=== PATIENT | male | born 1975 | race Caucasian/White ===

== ENCOUNTER 2016-09-23 15:31 | Emergency (ER) | payer BC ==
[2016-09-23] MEDS ORDERED: Labetalol 5 mg/mL 20 mL Vial ONE (15:52)
[2016-09-23] MEDS ORDERED: Labetalol 5 mg/mL 20 mL Vial IVP STA (15:53)
[2016-09-23] MEDS ORDERED: Sodium Chloride 0.9% 1,000 ML IV ONE ×2 (15:54→18:06)
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
[2016-09-23 16:15] VITALS: BP 210/107
[2016-09-23] MEDS ORDERED: Morphine Sulfate 4 mg/mL 1mL Syr IVP ONE ×2 (16:15→18:14)
[2016-09-23 16:33] LABS: HEMATOCRIT 37.7 % (39.0-49.0); HEMOGLOBIN 13.1 gm/dL (13.2-17.3); MEAN CELL VOLUME 85.3 fl (80-99); MEAN CORPUSCULAR HEMOGLOBIN 29.7 pg (26.0-30.0); MEAN CORPUSCULAR HGB CONC 34.8 pg (28.0-36.0); MEAN PLATELET VOLUME 8.2 fl; NEUTROPHILE ABSOLUTE 17.3 Th/cmm (1.8-8.0); PLATELET COUNT 296 Th/cmm (150-400); RED BLOOD COUNT 4.42 Mil/cmm (4.30-5.70); RED CELL DISTRIBUTION WIDTH 12.6 % (11.5-20.0)
[2016-09-23 16:37] LABS: WHITE BLOOD COUNT 19.1 Th/cmm (4.8-10.8)
[2016-09-23 16:51] LABS: ANION GAP 11.1 (7.0-16.0); BAND NEUTROPHILE 1 % (0-10); BUN - UREA NITROGEN 15 mg/dL (7-25); BUN/CREATININE RATIO 12.5; CALCIUM SERUM 9.3 mg/dL (8.6-10.3); CARBON DIOXIDE 24.3 mEq/L (21.0-31.0); CHLORIDE 103 mEq/L (98-107); CREATININE - SERUM 1.2 mg/dL (0.7-1.3); GLUCOSE 164 mg/dL (70-105); NEUTROPHILS 86 % (40-80); PLATELET ESTIMATE ADEQUATE (NORMAL); POTASSIUM SERUM 3.4 mEq/L (3.5-5.1); SODIUM SERUM 135 mEq/L (136-145); TOTAL CELLS COUNTED 100
[2016-09-23] MEDS ORDERED: IOHEXOL 350mg/mL 100mL Bottle IVP ONE (19:04)
--- NOTE | 2016-09-24 09:25 | Diagnostic Imaging Report ---
Exam: CT examination of the right lower extremity. HISTORY: Vascular injury Findings Total DLP equals 133 CTDI equals 3.0 Findings: Multiple contiguous thin section of the right lower extremity was obtained from a distal right femur to the level of the knee joint. The study demonstrates no evidence of fracture dislocation. Suboptimal opacification of the soft tissues appreciated. There is no evidence of vascular abnormality or disruption. There is no evidence for hematoma. Mild subcutaneous soft tissue swelling medially most likely related to cellulitis. IMPRESSION: Suboptimal contrast opacification. No definite vascular disruption or abnormality. Subcutaneous soft tissue swelling.
--- NOTE | 2016-09-24 09:34 | Diagnostic Imaging Report ---
Exam: Left wrist joint. HISTORY: Acute injury. Findings: Multiple views of the left wrist joint reviewed. The study demonstrates comminuted displaced impacted fracture of the distal left radius. Avulsion of ulnar styloid is noted.. Narrowing of the radiocarpal joint appreciated. The carpal bones are intact. There is evidence for a ventral dislocation of radiocarpal joint. IMPRESSION: 1. Severely comminuted displaced fracture of the left distal radius with impaction. The fracture extends into the radiocarpal joint space 2. Avulsion ulnar styloid. 3. Ventral dislocation of the left wrist joint.
--- NOTE | 2016-09-24 09:35 | Diagnostic Imaging Report ---
Exam: Right knee joint. HISTORY: Trauma Findings: Multiple views of the right knee joint reviewed. The study demonstrates no evidence of fracture dislocation. The joint spaces preserved. Lateral soft tissue swelling appreciated. IMPRESSION: soft tissue swelling, unremarkable examination right knee joint.
--- NOTE | 2016-09-24 09:36 | Diagnostic Imaging Report ---
Exam: Right fifth finger. HISTORY: Trauma. Findings: Multiple views of right technique fifth finger were reviewed. The study demonstrates a a tiny 2 mm avulsion fracture of the proximal end of the middle phalanx of the right fifth finger extending of the joint space. Soft tissue swelling is noted. IMPRESSION: 2 mm avulsion fracture at the base of the middle phalanx right fifth finger.
== END 2016-09-23 20:50 | disposition home or self-care (01) ==
LOC: ER 15:31
DX: S62.102A Fracture of unspecified carpal bone, left wrist, initial encounter for closed fracture (principal); I10 Essential (primary) hypertension; V29.9XXA Motorcycle rider (driver) (passenger) injured in unspecified traffic accident, initial encounter; Y93.89 Activity, other specified; Y92.488 Other paved roadways as the place of occurrence of the external cause; Y99.8 Other external cause status
CPT/HCPCS: 99285; 96374; 96375; 96376; 29125; 73110; 73564; 73140; 73701; 36415; 83605; 85007; 85027; 80048; Q9967; J2405; 73562-TC-RT; 90799; J2270; J7030

== ENCOUNTER 2016-10-11 14:27 | Inpatient (IN) | payer BC ==
[2016-10-11] MEDS ORDERED: IOHEXOL 300MG/ML 100 ML VIAL IVP ONE (14:28)
[2016-10-11] MEDS ORDERED: Sodium Chloride 0.9% 1,000 ML IV ONE (14:53)
[2016-10-11] MEDS ORDERED: cefTRIAXone 1 GM in Sodium Chloride 0.9% 50 ML IV ONE (14:55)
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
[2016-10-11 15:24] LABS: % BASOPHILS 0.7 % (0.0-2.0); % EOSINOPHILS 0.3 % (0.0-5.0); % MONOCYTES 10.3 % (2.0-10.0); % NEUTROPHILS 75.7 % (40.0-80.0); HEMATOCRIT 35.3 % (39.0-49.0); MEAN CELL VOLUME 88.6 fl (80-99); MEAN CORPUSCULAR HEMOGLOBIN 30.2 pg (26.0-30.0); MEAN CORPUSCULAR HGB CONC 34.1 pg (28.0-36.0); MEAN PLATELET VOLUME 7.8 fl; NEUTROPHILE ABSOLUTE 8.2 Th/cmm (1.8-8.0); PLATELET COUNT 332 Th/cmm (150-400); RED BLOOD COUNT 3.99 Mil/cmm (4.30-5.70); RED CELL DISTRIBUTION WIDTH 13.6 % (11.5-20.0)
[2016-10-11 15:36] LABS: WHITE BLOOD COUNT 10.8 Th/cmm (4.8-10.8)
[2016-10-11 15:37] LABS: INR 1.12 (0.5-1.4); PROTHROMBIN TIME (TEST) 11.7 SECONDS (9.5-11.5)
[2016-10-11 15:42] LABS: ALB/GLOB RATIO 1.3 (1.0-1.8); ALKALINE PHOSPHATASE 57 U/L (34-104); ANION GAP 10.5 (7.0-16.0); BILIRUBIN,TOTAL 0.8 mg/dL (0.3-1.0); BUN - UREA NITROGEN 22 mg/dL (7-25); CALCIUM SERUM 9.6 mg/dL (8.6-10.3); CARBON DIOXIDE 23.6 mEq/L (21.0-31.0); CHLORIDE 97 mEq/L (98-107); CREATININE - SERUM 1.1 mg/dL (0.7-1.3); GLUCOSE 107 mg/dL (70-105); POTASSIUM SERUM 3.1 mEq/L (3.5-5.1); SGOT 32 U/L (13-39); SGPT/ALT 29 U/L (7-52); SODIUM SERUM 128 mEq/L (136-145)
--- NOTE | 2016-10-11 16:29 | Diagnostic Imaging Report ---
CT scan right knee HISTORY: Pain, trauma The exam demonstrates generalized heterogeneous density throughout the soft tissues of the right knee consistent with edema/swelling. There is a loculated curvilinear density within the subcutaneous tissues along the posterior medial aspect of the knee. In view of the patient's traumatic history, findings may be associated with hematoma. No acute bony abnormalities. No fractures. Several punctate sclerotic densities are noted within the medial lateral femoral condyles and lateral tibial plateau regions. Findings consistent with incidental benign lesions. IMPRESSION: 1. Loculated density probably related to a fluid collection within the subcutaneous tissues along the medial aspect of the knee. In view of the patient's traumatic history, findings are probably associated with hematoma. An MRI exam would provide additional characterization and assessment. In addition, generalized haziness is noted throughout the soft tissues of the knee consistent with probable edema. 2. No acute bony abnormalities 3. Several punctate sclerotic densities within the medial and lateral femoral condyles and lateral tibial plateau regions consistent with incidental benign lesions.
--- NOTE | 2016-10-11 16:34 | Diagnostic Imaging Report ---
Portable chest x-ray HISTORY: Pain The heart size appears generous. No acute focal pulmonary processes. No hilar or mediastinal abnormalities. IMPRESSION: No acute abnormalities
[2016-10-11] MEDS ORDERED: Potassium Chloride 20 mEq ER Tab PO ONE ×2 (16:54→17:01)
[2016-10-11 19:46] VITALS: BP 167/104
[2016-10-11] MEDS ORDERED: Acetaminophen 500 MG TAB PO PRN (20:53)
[2016-10-11 21:10] LABS: URINE BILIRUBIN NEGATIVE (NEGATIVE); URINE BLOOD SMALL (NEGATIVE); URINE GLUCOSE (UA) NEGATIVE (NEGATIVE); URINE KETONE NEGATIVE (NEGATIVE); URINE PH 6.5 (4.6 - 8.0); URINE PROTEIN 30 mg/dL (NEGATIVE)
[2016-10-11] MEDS ORDERED: Vancomycin HCl 1.5 GM in Sodium Chloride 0.9% 500 ML IV ONE (21:15)
[2016-10-11 21:21] LABS: URINE COLOR YELLOW
[2016-10-11 21:24] LABS: URINE BACTERIA NONE SEEN /hpf (NONE SEEN); URINE EPITHELIAL CELLS NONE SEEN /lpf (FEW); URINE RBC 0-2 /hpf (0-5); URINE WBC 0-2 /hpf (0-5)
[2016-10-12 06:54] LABS: % BASOPHILS 0.1 % (0.0-2.0); % EOSINOPHILS 0.6 % (0.0-5.0); % LYMPHOCYTES 16.5 % (20.0-50.0); % MONOCYTES 10.1 % (2.0-10.0); % NEUTROPHILS 72.7 % (40.0-80.0); HEMATOCRIT 32.4 % (39.0-49.0); HEMOGLOBIN 10.8 gm/dL (13.2-17.3); MEAN CELL VOLUME 89.4 fl (80-99); MEAN CORPUSCULAR HEMOGLOBIN 29.8 pg (26.0-30.0); MEAN CORPUSCULAR HGB CONC 33.3 pg (28.0-36.0); MEAN PLATELET VOLUME 7.7 fl; NEUTROPHILE ABSOLUTE 5.7 Th/cmm (1.8-8.0); PLATELET COUNT 299 Th/cmm (150-400); RED BLOOD COUNT 3.62 Mil/cmm (4.30-5.70); RED CELL DISTRIBUTION WIDTH 13.9 % (11.5-20.0)
[2016-10-12 06:59] LABS: WHITE BLOOD COUNT 7.8 Th/cmm (4.8-10.8)
[2016-10-12 07:10] LABS: ANION GAP 8.5 (7.0-16.0); BUN - UREA NITROGEN 17 mg/dL (7-25); BUN/CREATININE RATIO 18.9; CARBON DIOXIDE 24.8 mEq/L (21.0-31.0); CHLORIDE 102 mEq/L (98-107); CREATININE - SERUM 0.9 mg/dL (0.7-1.3); GLUCOSE 105 mg/dL (70-105); POTASSIUM SERUM 3.3 mEq/L (3.5-5.1); SODIUM SERUM 132 mEq/L (136-145)
[2016-10-12] MEDS ORDERED: Vancomycin HCl 1.5 GM in Sodium Chloride 0.9% 500 ML IV ONE (08:45)
[2016-10-12] MEDS ORDERED: cefTRIAXone 1 GM in Sodium Chloride 0.9% 50 ML IV SCH (21:00)
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
[2016-10-13] MEDS: Hydrocodone/APAP 5mg/325mg Tab PO PRN (08:34)
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
[2016-10-13] MEDS ORDERED: Vancomycin HCl 1.5 GM in Sodium Chloride 0.9% 500 ML IV SCH (10:00)
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
[2016-10-13] MEDS ORDERED: Probiotic Screen MC PRN (17:24)
[2016-10-13] MEDS: Lactobacillus Rhamnosus 10 Billion CFU Capsule PO SCH (17:44)
[2016-10-13] MEDS ORDERED: Ampicillin 2 GM in Sodium Chloride 0.9% 100 ML IV SCH (18:20)
[2016-10-13] MEDS ORDERED: Potassium Chloride 20 mEq ER Tab PO ONE (18:27)
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
[2016-10-13] MEDS: cefTRIAXone 2 GM in Sodium Chloride 0.9% 100 ML IV SCH (21:08)
[2016-10-14 05:24] LABS: % BASOPHILS 0.5 % (0.0-2.0); % EOSINOPHILS 2.2 % (0.0-5.0); % LYMPHOCYTES 20.9 % (20.0-50.0); % MONOCYTES 8.3 % (2.0-10.0); % NEUTROPHILS 68.1 % (40.0-80.0); HEMATOCRIT 32.8 % (39.0-49.0); HEMOGLOBIN 11.4 gm/dL (13.2-17.3); MEAN CELL VOLUME 86.5 fl (80-99); MEAN CORPUSCULAR HEMOGLOBIN 29.9 pg (26.0-30.0); MEAN CORPUSCULAR HGB CONC 34.6 pg (28.0-36.0); MEAN PLATELET VOLUME 7.4 fl; NEUTROPHILE ABSOLUTE 6.3 Th/cmm (1.8-8.0); RED BLOOD COUNT 3.79 Mil/cmm (4.30-5.70); RED CELL DISTRIBUTION WIDTH 13.9 % (11.5-20.0); WHITE BLOOD COUNT 9.2 Th/cmm (4.8-10.8)
[2016-10-14 05:33] LABS: PLATELET COUNT 366 Th/cmm (150-400)
[2016-10-14 05:35] LABS: BUN - UREA NITROGEN 11 mg/dL (7-25); BUN/CREATININE RATIO 12.2; CALCIUM SERUM 9.1 mg/dL (8.6-10.3); CARBON DIOXIDE 30.5 mEq/L (21.0-31.0); CHLORIDE 100 mEq/L (98-107); CREATININE - SERUM 0.9 mg/dL (0.7-1.3); GLUCOSE 98 mg/dL (70-105); POTASSIUM SERUM 3.5 mEq/L (3.5-5.1); SODIUM SERUM 133 mEq/L (136-145)
[2016-10-14] MEDS: Lactobacillus Rhamnosus 10 Billion CFU Capsule PO SCH (08:21)
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
[2016-10-14] MEDS: cefTRIAXone 2 GM in Sodium Chloride 0.9% 100 ML IV SCH (17:39)
[2016-10-15] MEDS: Hydrocodone/APAP 5mg/325mg Tab PO PRN ×2 (00:03→21:27)
[2016-10-15] MEDS: Lactobacillus Rhamnosus 10 Billion CFU Capsule PO SCH (08:34)
[2016-10-15] MEDS: cefTRIAXone 2 GM in Sodium Chloride 0.9% 100 ML IV SCH (17:32)
[2016-10-16] MEDS: Lactobacillus Rhamnosus 10 Billion CFU Capsule PO SCH (09:24)
[2016-10-16] MEDS: cefTRIAXone 2 GM in Sodium Chloride 0.9% 100 ML IV SCH (18:19)
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
== END 2016-10-16 20:26 | DRG 549 ==
LOC: ER 14:27 → MSI 17:10
PROVIDERS: ADMIT Family Medicine; ATTEND Family Medicine
DX: M00.9 Pyogenic arthritis, unspecified (principal); S52.92XA Unspecified fracture of left forearm, initial encounter for closed fracture; E87.1 Hypo-osmolality and hyponatremia; I10 Essential (primary) hypertension; L03.115 Cellulitis of right lower limb; E66.9 Obesity, unspecified; E87.6 Hypokalemia; E86.0 Dehydration; S70.11XA Contusion of right thigh, initial encounter; V29.9XXA Motorcycle rider (driver) (passenger) injured in unspecified traffic accident, initial encounter; Y93.89 Activity, other specified; Y92.89 Other specified places as the place of occurrence of the external cause; Y99.8 Other external cause status; Z82.49 Family history of ischemic heart disease and other diseases of the circulatory system; Z91.19 Patient's noncompliance with other medical treatment and regimen; Z68.37 Body mass index [BMI] 37.0-37.9, adult
CPT/HCPCS: 36415-UA; 71010-TC; 73701-TC-RT; 73718-TC-RT; 80048-TC; 80053-TC; 80202-TC; 81001-TC; 82550-TC; 83605; 84484-TC; 85025-TC; 85610-TC; 85730-TC; 87070-90; 93005; J0696; J3370; J7030; J7040; Q9967; Z7610

== ENCOUNTER 2016-10-26 20:40 | Inpatient (IN) | payer BC ==
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
[2016-10-26 21:57] LABS: % BASOPHILS 1.1 % (0.0-2.0); % EOSINOPHILS 1.6 % (0.0-5.0); % LYMPHOCYTES 19.5 % (20.0-50.0); % MONOCYTES 5.9 % (2.0-10.0); % NEUTROPHILS 71.9 % (40.0-80.0); HEMATOCRIT 39.1 % (39.0-49.0); MEAN CELL VOLUME 88.6 fl (80-99); MEAN CORPUSCULAR HEMOGLOBIN 29.6 pg (26.0-30.0); MEAN CORPUSCULAR HGB CONC 33.3 pg (28.0-36.0); MEAN PLATELET VOLUME 7.8 fl; NEUTROPHILE ABSOLUTE 5.9 Th/cmm (1.8-8.0); PLATELET COUNT 353 Th/cmm (150-400); RED BLOOD COUNT 4.41 Mil/cmm (4.30-5.70); RED CELL DISTRIBUTION WIDTH 14.3 % (11.5-20.0); WHITE BLOOD COUNT 8.2 Th/cmm (4.8-10.8)
[2016-10-26 22:16] LABS: ANION GAP 7.3 (7.0-16.0); BUN - UREA NITROGEN 18 mg/dL (7-25); BUN/CREATININE RATIO 16.4; CALCIUM SERUM 9.8 mg/dL (8.6-10.3); CARBON DIOXIDE 28.3 mEq/L (21.0-31.0); CHLORIDE 98 mEq/L (98-107); CREATININE - SERUM 1.1 mg/dL (0.7-1.3); GLUCOSE 110 mg/dL (70-105); POTASSIUM SERUM 3.6 mEq/L (3.5-5.1); SODIUM SERUM 130 mEq/L (136-145)
[2016-10-27] MEDS ORDERED: Sodium Chloride 0.9% 1,000 ML IV ONE (01:24)
[2016-10-27] MEDS ORDERED: Hydrocodone/APAP 5mg/325mg Tab PO PRN (03:54)
[2016-10-27] MEDS ORDERED: Acetaminophen 500 MG TAB PO PRN (04:34)
[2016-10-27] MEDS ORDERED: cefTRIAXone 2 GM in Sodium Chloride 0.9% 100 ML IV ONE (10:13)
--- NOTE | 2016-10-27 13:53 | Diagnostic Imaging Report ---
Right lower extremity DVT study HISTORY: Pain COMPARISON: None Technique: Longitudinal and transverse sonographic images of the right lower extremity veins were obtained with doppler analysis. FINDINGS: There is normal compressibility, augmentation and phasicity of the right common femoral, superficial femoral, popliteal, and posterior tibial veins. No thrombus is visualized. IMPRESSION: No evidence of thrombus within the right lower extremity veins.
--- NOTE | 2016-10-27 14:50 | Diagnostic Imaging Report ---
MRI right knee without IV contrast History: Cellulitis Comparison: Right knee MRI performed at [facility] on 10/12/2016. Study was also compared to CT right lower extremity performed at [facility] on 10/11/2016. Technique: Multiplanar T1, T2, and T2-weighted images of the right knee were obtained without IV contrast. Findings: Subcutaneous edema is seen throughout the right lower extremity with overall mild improvement since prior examination. There is a fluid collection located along the anterior medial knee joint primarily within the subcutaneous tissues and anterior and adjacent to the patellar tendon. This collection extends to the proximal one third visualized tibia and measures 11.9 cm craniocaudal x 1.7 cm AP x 9.2 cm transverse. Overall the size of this collection has decreased since prior examination MRI examination on 10/12/2016. The medial and lateral meniscus are intact. There is heterogeneity of the anterior cruciate ligament. The posterior cruciate ligament is intact. The patellar and quadriceps tendons are intact. Mild distal quadriceps the no tendinosis is noted. The medial and lateral collateral ligamentous complexes are intact. Heterogeneous red and fatty bone marrow is noted. There is also bone marrow edema along the posterior aspect of the lateral tibial plateau just above the tibiofibular articulation with a nondisplaced fracture line seen in this region. Mild degenerative changes are seen. Low-grade chondromalacia patella is noted. Trace joint effusion is noted. IMPRESSION: Large subcutaneous fluid collection extending from the anterior medial aspect of the knee joint to the proximal one third of the tibia. Overall the fluid collection appears to have decreased in size since previous MRI examination on 10/12/2016. An infected fluid collection such as an abscess cannot be excluded. Clinical correlation continued follow-up is recommended to ensure resolution. There is subcutaneous edema throughout the lower extremity with overall improvement since prior exam. Findings suggest cellulitis. Focal osseous edema seen along the posterior aspect of the lateral tibial plateau just above the tibiofibular articulation with a nondisplaced fracture line seen in this region. Please correlate possible recent trauma. Heterogeneously of the anterior cruciate ligament. A partial low-grade intrasubstance tear cannot be excluded. No full-thickness tear identified. No evidence of a meniscal tear. Heterogeneous red and fatty bone marrow, nonspecific.
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
--- NOTE | 2016-10-27 19:37 | Consultation ---
Consult Note - Consult Note Service Date: 10/27/16 Referring Physician: Patrick Martinez Consult Note: PHYSICIAN Consultation Note: Date of Admission: 10/27/16 Purpose of Consultation: Chief Complaint: History of Present Illness: Patient TRINI GRANDE was admitted to [facility] I with RT KNEE CELLULITIS. Past Medical History: Allergies Allergy/AdvReac Type Severity Reaction Status Date / Time No Known Allergies Allergy Verified 10/26/16 21:57 Vital Signs Temp 99.0 F 10/27/16 12:34 Pulse 81 10/27/16 12:34 Resp 20 10/27/16 12:34 BP 149/95 10/27/16 12:34 Pulse Ox 98 10/27/16 12:34 Intake & Output 10/27/16 10/27/16 10/28/16 06:59 18:59 06:59 Intake Total 2500 490 Balance 2500 490 Weight (lbs) 104.326 kg Intake: Intake, IV Amount 2500 350 Piperacillin Sodium/ 100 Tazobact 4.5 gm In Sodium Chloride 0.9% 100 ml @ 100 mls/hr IV Q8HR [facility] Rx #:[id number] Sodium Chloride 0.9% 1, 1000 000 ml @ Wide Open IV . Q0M [facility] Rx#:[id number] Vancomycin HCl 1 gm In 250 Sodium Chloride 0.9% 250 ml @ 165 mls/hr IV X1 [facility] Rx#:[id number] Vancomycin HCl 1.25 gm In 250 Sodium Chloride 0.9% 250 ml @ 165 mls/hr IV Q8H [facility] Rx#:[id number] Oral 140 Home Medication Medication Instructions Recorded Type Hydrocodone/APAP 5mg/325mg [Helm 1 tab PO Q4H PRN tab 10/16/16 Rx 5mg/325mg] Lactobacillus Rhamnosus 1 each PO DAILY 10/16/16 Rx [Culturelle] Silver Sulfadiazine 1% Cream [Ssd] 1 appl TP DAILY appl 10/16/16 Rx cloNIDine HCl [Catapres] 0.1 mg PO Q6HR PRN tab 10/16/16 Rx Acetaminophen [Tylenol] 650 mg PO Q4HR PRN 10/26/16 History Lisinopril [Zestril*] 20 mg PO DAILY 10/26/16 History Ondansetron [Zofran ODT] 4 mg PO Q6HR PRN 10/26/16 History Current Medications Generic Name Dose Route Start Last Admin Trade Name Freq PRN Reason Stop Dose Admin Acetaminophen 500 mg 10/27/16 04:34 Tylenol Extra Strength PO 12/26/16 04:33 Q4H PRN Pain or Fever >101 Acetaminophen/Hydrocodone Bitart 1 tab 10/27/16 03:54 Helm 5mg/325mg PO 12/26/16 03:53 Q4H PRN Pain (Moderate) Vancomycin HCl 1.25 gm/ Sodium 250 mls @ 165 mls/hr 10/27/16 10:00 10/27/16 18:12 Chloride IV 12/26/16 09:59 165 mls/hr Q8H [facility] Administration Piperacillin Sod/Tazobactam 100 mls @ 100 mls/hr 10/27/16 13:00 10/27/16 18: 13 Sod 4.5 gm/ Sodium Chloride IV 12/26/16 12:59 Infused Q8HR [facility] Infusion Miscellaneous 1 ea 10/27/16 03:54 Vancomycin Iv Per Pharmacy 12/26/16 03:53 PRN PRN PROTOCOL Review of Systems: A 12 point ROS was reviewed with the pertinent positive and negatives noted in the HPI. Social History Smoking Status Never smoker Drug Use No Alcohol Use No Family Medical History Family Medical History Start: 10/27/16 04: 37 Freq: ONCE Status: Active Document 10/27/16 05:19 DDENIBARB (Rec: 10/27/16 05:19 DDENIBARB LUNA- [id number]) Family Medical History Father History Unknown Yes Physical Exam: General: HEENT: Cardio: Respiratory: Abdominal: Genital/Urinary: Extremities: Neurological: Assessment: 1. Left leg and knee cellulitis, infected hematoma, no osteomyelitis. ? septic left knee. Plan: Agree with blake, reculture the wound. Signed, Juan M Waters M.D. [id number]
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
[2016-10-28 05:42] LABS: % BASOPHILS 0.6 % (0.0-2.0); % EOSINOPHILS 1.4 % (0.0-5.0); % LYMPHOCYTES 29.8 % (20.0-50.0); % MONOCYTES 6.1 % (2.0-10.0); % NEUTROPHILS 62.1 % (40.0-80.0); HEMATOCRIT 36.4 % (39.0-49.0); HEMOGLOBIN 12.2 gm/dL (13.2-17.3); MEAN CELL VOLUME 88.7 fl (80-99); MEAN CORPUSCULAR HEMOGLOBIN 29.6 pg (26.0-30.0); MEAN CORPUSCULAR HGB CONC 33.4 pg (28.0-36.0); NEUTROPHILE ABSOLUTE 4.2 Th/cmm (1.8-8.0); PLATELET COUNT 311 Th/cmm (150-400); RED BLOOD COUNT 4.11 Mil/cmm (4.30-5.70); WHITE BLOOD COUNT 6.7 Th/cmm (4.8-10.8)
[2016-10-28 06:01] LABS: BUN - UREA NITROGEN 12 mg/dL (7-25); CALCIUM SERUM 9.3 mg/dL (8.6-10.3); CARBON DIOXIDE 26.7 mEq/L (21.0-31.0); CHLORIDE 104 mEq/L (98-107); GLUCOSE 90 mg/dL (70-105); POTASSIUM SERUM 3.7 mEq/L (3.5-5.1); SODIUM SERUM 134 mEq/L (136-145)
[2016-10-28] MEDS: Venelex 60gm Tube TP SCH (11:00)
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
[2016-10-30 06:32] LABS: ANION GAP 7.8 (7.0-16.0); BUN - UREA NITROGEN 10 mg/dL (7-25); BUN/CREATININE RATIO 9.1; CALCIUM SERUM 9.5 mg/dL (8.6-10.3); CARBON DIOXIDE 27.9 mEq/L (21.0-31.0); CHLORIDE 102 mEq/L (98-107); CREATININE - SERUM 1.1 mg/dL (0.7-1.3); GLUCOSE 84 mg/dL (70-105); POTASSIUM SERUM 3.7 mEq/L (3.5-5.1); SODIUM SERUM 134 mEq/L (136-145)
[2016-10-30 06:36] LABS: % BASOPHILS 0.5 % (0.0-2.0); % EOSINOPHILS 1.6 % (0.0-5.0); % LYMPHOCYTES 33.1 % (20.0-50.0); % MONOCYTES 5.1 % (2.0-10.0); % NEUTROPHILS 59.7 % (40.0-80.0); HEMATOCRIT 36.8 % (39.0-49.0); HEMOGLOBIN 12.6 gm/dL (13.2-17.3); MEAN CELL VOLUME 87.9 fl (80-99); MEAN CORPUSCULAR HEMOGLOBIN 30.1 pg (26.0-30.0); MEAN CORPUSCULAR HGB CONC 34.2 pg (28.0-36.0); MEAN PLATELET VOLUME 8.6 fl; NEUTROPHILE ABSOLUTE 4.2 Th/cmm (1.8-8.0); PLATELET COUNT 298 Th/cmm (150-400); RED BLOOD COUNT 4.18 Mil/cmm (4.30-5.70); RED CELL DISTRIBUTION WIDTH 14.1 % (11.5-20.0); WHITE BLOOD COUNT 7.1 Th/cmm (4.8-10.8)
[2016-10-30] MEDS: Venelex 60gm Tube TP SCH (10:17)
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
[2016-10-31] MEDS ORDERED: Meperidine 25 mg/mL 1mL Syr IVP PRN (11:17)
[2016-10-31] MEDS ORDERED: Lactated Ringer 1,000 ML IV SCH (11:30)
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
[2016-10-31] MEDS: Venelex 60gm Tube TP SCH (14:51)
[2016-10-31] MEDS ORDERED: Probiotic Screen MC PRN (16:45)
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
[2016-11-01] MEDS ORDERED: Lactobacillus Rhamnosus 10 Billion CFU Capsule PO SCH (09:00)
[2016-11-01] MEDS: Venelex 60gm Tube TP SCH (09:04)
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
== END 2016-11-01 14:45 | DRG 571 ==
LOC: ER 20:40 → ICU 10-27 03:50 → MSI 10-27 18:00
PROVIDERS: ADMIT Family Medicine; ATTEND Family Medicine
PROC: 0JBN0ZZ Excision of Right Lower Leg Subcutaneous Tissue and Fascia, Open Approach (ICD-10-PCS; principal; 2016-10-31)
DX: L03.115 Cellulitis of right lower limb (principal); L97.819 Non-pressure chronic ulcer of other part of right lower leg with unspecified severity; I10 Essential (primary) hypertension; L02.415 Cutaneous abscess of right lower limb; E66.9 Obesity, unspecified; B96.5 Pseudomonas (aeruginosa) (mallei) (pseudomallei) as the cause of diseases classified elsewhere; S80.01XA Contusion of right knee, initial encounter; S81.001A Unspecified open wound, right knee, initial encounter; B95.62 Methicillin resistant Staphylococcus aureus infection as the cause of diseases classified elsewhere; Z68.35 Body mass index [BMI] 35.0-35.9, adult
CPT/HCPCS: 36415-UA; 73718-TC-RT; 80048-TC; 80202-TC; 82948-90; 85025-TC; 87070-90; 93971-TC-RT; J0360; J0696; J2543; J3370; J7030; Z7610